=== PATIENT | male | born 1950 | race American Indian/Alaskan Native ===

== ENCOUNTER 2016-11-22 18:40 | Emergency (ER) | payer OTHER ==
[2016-11-22 20:31] VITALS: BP 148/90
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
== END 2016-11-22 20:43 | disposition home or self-care (01) ==
LOC: ED 18:40
DX: S13.4XXA Sprain of ligaments of cervical spine, initial encounter (principal); I10 Essential (primary) hypertension; V49.49XA Driver injured in collision with other motor vehicles in traffic accident, initial encounter; Y92.488 Other paved roadways as the place of occurrence of the external cause; Y93.89 Activity, other specified; Y99.8 Other external cause status
CPT/HCPCS: 99282